=== PATIENT | female | born 1960 | race Caucasian/White ===

== ENCOUNTER 2020-12-07 14:00 | Observation (INO) | payer OTHER, BC ==
[~2020-12-07] VITALS: Ht 167.6 cm; Wt 81.0 kg
[2020-12-07] MEDS ORDERED: ASPIRIN CHEWABLE 81 MG TABLET. PO ONE (14:15)
[2020-12-07 14:24] LABS: BASO # 0.1 x10^3/uL (0.0-0.2); BASO % 1 % (0-3); EOS # 0.2 x10^3/uL (0.0-0.7); EOS % 2 % (0-3); HEMATOCRIT 44.6 % (36.0-47.0); HEMOGLOBIN 15.5 g/dL (12.0-15.5); LYMPH # 2.5 x10^3/uL (1.0-4.8); LYMPH % 30 % (24-48); MEAN CORPUSCULAR HEMOGLOBIN 33 pg (25-35); MEAN CORPUSCULAR HGB CONC 35 g/dL (31-37); MEAN CORPUSCULAR VOLUME 93 fL (79-100); MONO # 0.7 x10^3/uL (0.0-1.1); MONO % 8 % (0-9); NEUT % 59 % (31-73); PLATELET COUNT 308 x10^3/uL (140-400); RED BLOOD COUNT 4.78 x10^6/uL (3.50-5.40); RED CELL DISTRIBUTION WIDTH 12.8 % (11.5-14.5); WHITE BLOOD COUNT 8.4 x10^3/uL (4.0-11.0)
--- NOTE | 2020-12-07 14:29 | ED.ADGEN ---
General Adult EDM: Chief Complaint: CHEST PAIN HPI: HPI: Patient is a 60-year-old female who arrives ambulatory to the emergency department complaining of chest pain with radiation through to her back. Patient reports this pain began shortly after 10:00 this morning. She describes the pain as knifelike in nature. Patient reports she just returned from [facility] where she was evaluated for chest pain similar to this. She states she had an exhaustive evaluation which did not yield any cause. Despite this the patient denies any history of fever, cough or shortness of air. Additionally she denies any history of known cardiac disease. She is awake, alert and anxious appearing. Review of Systems: Review of Systems: Constitutional: Denies fever or chills. [] Eyes: Denies change in visual acuity. [] HENT: Denies nasal congestion or sore throat. [] Respiratory: Denies cough or shortness of breath. [] Cardiovascular: Reports chest pain with migration through to her back. Denies edema. [] GI: Denies abdominal pain, nausea, vomiting, bloody stools or diarrhea. [] : Denies dysuria. [] Musculoskeletal: Reports thoracic back pain. Denies joint pain. [] Integument: Denies rash. [] Neurologic: Denies headache, focal weakness or sensory changes. [] Endocrine: Denies polyuria or polydipsia. [] Lymphatic: Denies swollen glands. [] Psychiatric: Denies depression or anxiety. [] Current Medications: Current Medications Medications (Trade) Dose Ordered Sig/Kaylen Start Time Stop Time Status Last Admin Dose Admin Aspirin (Aspirin Chewable) 324 mg 1X ONCE 12/07/20 14:15 12/07/20 14:26 DC 12/07/20 14:23 324 MG Morphine Sulfate (Morphine Sulfate) 4 mg PRN Q2HR PRN 12/07/20 15:15 12/08/20 15:14 Ondansetron HCl (Zofran) 4 mg PRN Q8HRS PRN 12/07/20 15:15 12/08/20 15:14 Allergies: Allergies: Allergies Coded Allergies Type Severity Reaction Last Updated Verified dicyclomine Allergy Severe Anaphylaxis 12/07/20 Yes Physical Exam: PE: Constitutional: Anxious appearing. Well developed, well nourished, no acute distress, non-toxic appearance. [] HENT: Normocephalic, atraumatic, bilateral external ears normal, oropharynx moist, no oral exudates, nose normal. [] Eyes: PERRLA, EOMI, conjunctiva normal, no discharge. [] Neck: Normal range of motion, no tenderness, supple, no stridor. [] Cardiovascular:Heart rate regular rhythm, no murmur [] Lungs & Thorax: Bilateral breath sounds clear to auscultation [] Abdomen: Bowel sounds normal, soft, no tenderness, no masses, no pulsatile masses. [] Skin: Warm, dry, no erythema, no rash. [] Back: No tenderness, no CVA tenderness. [] Extremities: No tenderness, no cyanosis, no clubbing, ROM intact, no edema. [] Neurologic: Alert and oriented X 3, normal motor function, normal sensory function, no focal deficits noted. [] Psychologic: Affect normal, judgement normal, mood normal. [] Current Patient Data: Labs: Laboratory Tests Test 12/07/20 14:12 White Blood Count 8.4 x10^3/uL (4.0-11.0) Red Blood Count 4.78 x10^6/uL (3.50-5.40) Hemoglobin 15.5 g/dL (12.0-15.5) Hematocrit 44.6 % (36.0-47.0) Mean Corpuscular Volume 93 fL (79-100) Mean Corpuscular Hemoglobin 33 pg (25-35) Mean Corpuscular Hemoglobin Concent 35 g/dL (31-37) Red Cell Distribution Width 12.8 % (11.5-14.5) Platelet Count 308 x10^3/uL (140-400) Neutrophils (%) (Auto) 59 % (31-73) Lymphocytes (%) (Auto) 30 % (24-48) Monocytes (%) (Auto) 8 % (0-9) Eosinophils (%) (Auto) 2 % (0-3) Basophils (%) (Auto) 1 % (0-3) Neutrophils # (Auto) 5.0 x10^3/uL (1.8-7.7) Lymphocytes # (Auto) 2.5 x10^3/uL (1.0-4.8) Monocytes # (Auto) 0.7 x10^3/uL (0.0-1.1) Eosinophils # (Auto) 0.2 x10^3/uL (0.0-0.7) Basophils # (Auto) 0.1 x10^3/uL (0.0-0.2) Sodium Level 137 mmol/L (136-145) Potassium Level 3.7 mmol/L (3.5-5.1) Chloride Level 101 mmol/L (98-107) Carbon Dioxide Level 29 mmol/L (21-32) Anion Gap 7 (6-14) Blood Urea Nitrogen 14 mg/dL (7-20) Creatinine 0.9 mg/dL (0.6-1.0) Estimated GFR (Cockcroft-Gault) 64.1 BUN/Creatinine Ratio 16 (6-20) Glucose Level 101 mg/dL (70-99) H Calcium Level 9.1 mg/dL (8.5-10.1) Total Bilirubin 1.1 mg/dL (0.2-1.0) H Aspartate Amino Transferase (AST) 14 U/L (15-37) L Alanine Aminotransferase (ALT) 22 U/L (14-59) Alkaline Phosphatase 67 U/L (46-116) Troponin I Quantitative < 0.017 ng/mL (0.000-0.055) CQ-Qti-N-Type Natriuretic Peptide 20 pg/mL (0-124) Total Protein 7.4 g/dL (6.4-8.2) Albumin 4.0 g/dL (3.4-5.0) Albumin/Globulin Ratio 1.2 (1.0-1.7) Lipase 106 U/L (73-393) Laboratory Tests 12/07/20 14:12 Laboratory Tests 12/07/20 14:12 Vital Signs: Vital Signs Date Time Temp Pulse Resp B/P (MAP) Pulse Ox O2 Delivery O2 Flow Rate FiO2 12/07/20 14:48 19 96 Room Air 12/07/20 14:01 98.1 81 158/85 (109) 98.1 EKG: EKG: EKG was obtained at 1406 hrs. and revealed a sinus rhythm with a ventricular rate of 72 bpm. There is left axis deviation with T wave inversion in the anterior leads. There is no ectopy present. Intervals are normal. [] Heart Score: C/O Chest Pain: Yes HEART Score for Chest Pain: HEART Score for Chest Pain Response (Comments) Value History Moderately Suspicious 1 ECG Nonspecific Repolarizatio 1 Age >45 - < 65 1 Risk Factors 1 or 2 Risk Factors 1 Troponin < Normal Limit 0 Total 4 Risk Factors: Risk Factors: DM, Current or recent (<one month) smoker, HTN, HLP, family history of CAD, obesity. Risk Scores: Score 0 - 3: 2.5% MACE over next 6 weeks - Discharge Home Score 4 - 6: 20.3% MACE over next 6 weeks - Admit for Clinical Observation Score 7 - 10: 72.7% MACE over next 6 weeks - Early Invasive Strategies Radiology/Procedures: Radiology/Procedures: [] Impression: [facility] [address] [place], [place] [id number] IMAGING REPORT Signed PATIENT: KALINA HAMMER ACCOUNT: [id number] : 1960 LOCATION: ER AGE: 60 SEX: F EXAM STATUS: REG ER ORD. PHYSICIAN: RAGINI OVALLES DO REASON: Chest pain PROCEDURE: PORTABLE CHEST 1V XR CHEST 1V Clinical Indication: Reason: Chest pain / Comparison: None. Findings: The cardiomediastinal silhouette is normal. A tiny calcification in the right lung base and a small calcification in the left lung base may be calcified granulomas. Lungs are clear. There is no pneumothorax. No pleural effusion is appreciated. No acute bone abnormality. IMPRESSION: No acute cardiopulmonary process. Electronically signed by: Adebayo Cobb MD (12/07/2020 2:46 PM) [id number] DICTATED and SIGNED BY: ADEBAYO COBB MD DATE: 12/07/20 [id number] 0 Course & Med Decision Making: Course & Med Decision Making Pertinent Labs and Imaging studies reviewed. (See chart for details) [] Homar Disclaimer: Homar Disclaimer: This electronic medical record was generated, in whole or in part, using a voice recognition dictation system. Departure Departure Impression: Primary Impression: Chest pain Disposition: ADMITTED INPT THIS HOSP Admitting Physician: LIZ Condition: STABLE Referrals: CELY ANDRES MD (PCP) RAGINI OVALLES DO Dec 07, 2020 14:29
[2020-12-07 14:32] LABS: CALCIUM 9.1 mg/dL (8.5-10.1); CREATININE 0.9 mg/dL (0.6-1.0); GFR 64.1; POTASSIUM 3.7 mmol/L (3.5-5.1)
[2020-12-07 14:38] LABS: ALBUMIN/GLOBULIN RATIO 1.2 (1.0-1.7); TOTAL BILIRUBIN 1.1 mg/dL (0.2-1.0); TOTAL PROTEIN 7.4 g/dL (6.4-8.2)
[2020-12-07] MEDS ORDERED: MORPHINE SULFATE 4 MG/ML VIAL. IV ONE (14:45)
[2020-12-07] MEDS ORDERED: MORPHINE SULFATE 4 MG/ML VIAL. ONE (14:45)
[2020-12-07] MEDS ORDERED: ONDANSETRON PF 4 MG/2 ML VIAL. IVP ONE (14:45)
--- NOTE | 2020-12-07 14:49 | RAD ---
XR CHEST 1V Clinical Indication: Reason: Chest pain / Comparison: None. Findings: The cardiomediastinal silhouette is normal. A tiny calcification in the right lung base and a small c alcification in the left lung base may be calcified granulomas. Lungs are clear. There is no pneumoth orax. No pleural effusion is appreciated. No acute bone abnormality. IMPRESSION: No acute cardiopulmonary process. Electronically signed by: Adebayo Cobb MD (12/07/2020 2:46 PM) [id number]
[2020-12-07] MEDS ORDERED: ONDANSETRON PF 4 MG/2 ML VIAL. IV PRN (15:15)
[2020-12-07] MEDS: MORPHINE SULFATE 4 MG/ML VIAL. IV PRN (16:53)
--- NOTE | 2020-12-07 17:08 | HP ---
ADMIT DATE: 12/07/2020 CHIEF COMPLAINT: Chest pain, syncope, nausea, back pain, low blood pressure. 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 Basically, she was down in [place], [place] and started developing what she thought might be cardiac symptoms. She tried to put it off until they got back to [place], but went ahead and went to the hospital down there. They told her she had some T-wave inversions, but no acute changes and let her go and told her to follow up here in [place]. Today, she was having some more chest pains radiating to the back, started at 10:00 this morning. Describes it as a knife-like sensation. I discussed the case with the ER physician. We are going to admit the patient and do a full cardiac workup. We are going to consult Cardiology. I am also going to do an ultrasound of her gallbladder to make sure she does not have gallstones. PAST MEDICAL HISTORY: Benign. ALLERGIES: DICYCLOMINE. FAMILY HISTORY: Diabetes. SOCIAL HISTORY: She does not drink, smoke or take drugs. She is an RN. MEDICATIONS: Reviewed, please refer to the MRAD. REVIEW OF SYSTEMS: GENERAL: No history of weight change, weakness or fevers. SKIN: No bruising, hair changes or rashes. EYES: No blurred, double or loss of vision. NOSE AND THROAT: No history of nosebleeds, hoarseness or sore throat. HEART: She complains of chest pain radiating to the back. LUNGS: Denies cough, hemoptysis, wheezing or shortness of breath. GASTROINTESTINAL: She complains of some nausea. GENITOURINARY: No history of frequency, urgency, hesitancy or nocturia. NEUROLOGIC: Denies history of numbness, tingling, tremor or weakness. PSYCHIATRIC: No history of panic, anxiety or depression. ENDOCRINE: No history of heat or cold intolerance, polyuria or polydipsia. EXTREMITIES: Denies muscle weakness, joint pain, pain on walking or stiffness. PHYSICAL EXAMINATION: VITALS: Within normal limits and are stable. GENERAL: No apparent distress. Alert and oriented. HEENT: Normal cephalic atraumatic, external auditory canals are patent. Eyes: Extraocular muscles are intact, pupils are equally round and reactive to light and accommodation. MUSCULOSKELETAL: Well developed, well nourished, good range of motion. ENDOCRINE: No thyromegaly was palpated. LYMPHATICS: No cervical chain or axillary nodes were noted. HEMATOPOIETIC: No bruising. NECK: Supple, no JVD, no thyromegaly was noted. LUNGS: Clear to auscultation in all lung moody without rhonchi or wheezing. HEART: RRR, S1, S2 present. Peripheral pulses intact, no obvious murmurs were noted. ABDOMEN: Soft, nontender. Positive bowel sounds no organomegaly, normal bowel sounds. EXTREMITIES: Without any cyanosis, clubbing, or edema. Pedal pulses intact, Homans sign is negative. NEUROLOGIC: Normal speech, normal tone. A and O x 3, moves all extremities, no obvious focal deficits. PSYCHIATRIC: Normal affect, normal mood. Stable. SKIN: No ulcerations or rashes, good skin turgor, no jaundice. VASCULAR: Good capillary refill, neurovascular bundle appears to be intact. LABORATORY DATA: Troponin is 0. Electrolytes are normal. CBC is normal. IMAGING: Chest x-ray, negative. ASSESSMENT AND PLAN: Chest pain, nausea, syncope, subjective hypotension. The patient has been admitted. We will consult Cardiology. Serial enzymes. Serial EKGs. Home meds. DVT prophylaxis. Full code. Cardiac monitoring. We will check an ultrasound of the gallbladder. MODESTO MADDEN DO DR: VAISHALI/jose JOB#: [id number] / [id number]
[2020-12-07 17:50] VITALS: BP 127/56
[2020-12-07] MEDS ORDERED: PROMETHAZINE 12.5 MG TABLET. PO PRN (19:15)
[2020-12-07] MEDS: KETOROLAC 15 MG/ML VIAL. IVP PRN (19:51)
[2020-12-07 19:58] VITALS: BP 106/55
[2020-12-07 22:16] VITALS: BP 102/51
--- NOTE | 2020-12-08 00:20 | RAD ---
Abdominal ultrasound Limited: Reason for examination: Chest pain. Evaluate for gallbladder disease. Pancreas is poorly visualized but no gross abnormalities apparent. The inferior vena cava shows no ab normality. The liver measures 17.2 cm in greatest dimension and shows no focal lesion but does show s ome fatty infiltration. Gallbladder shows no cholelithiasis, sludge or wall thickening. Common bile d uct is normal in caliber 4.1 mm. The right kidney measures 11.2 x 4.8 x 4.6 cm in greatest dimension and shows normal cortical medullary differentiation with no mass or hydronephrosis evident. IMPRESSION: Fatty liver. No gallbladder disease evident. Electronically signed by: Petra Ware MD (12/08/2020 12:17 AM) MARK
[2020-12-08 02:11] VITALS: BP 107/55
[2020-12-08 07:00] VITALS: BP 101/49
[2020-12-08] MEDS: KETOROLAC 15 MG/ML VIAL. IVP PRN (07:53)
[2020-12-08] MEDS ORDERED: SENN1TAB99 PO (08:02)
[2020-12-08] MEDS ORDERED: CETI10TA74 PO (08:02)
[2020-12-08] MEDS ORDERED: SENNOSIDES/DOCUSATE 8.6/50MG TABLET. PO SCH (09:00)
[2020-12-08] MEDS ORDERED: CETIRIZINE HCL 10 MG TABLET. PO SCH (09:00)
[2020-12-08] MEDS: MORPHINE SULFATE 4 MG/ML VIAL. IV PRN (09:04)
--- NOTE | 2020-12-08 10:21 | PDOC ---
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 She tried to put it off until they got back to [place], but went ahead and went to the hospital down there. They told her she had some T-wave inversions, but no acute changes and let her go and told her to follow up here in [place]. Today, she was having some more chest pains radiating to the back, started at 10:00 this morning. Describes it as a knife-like sensation. I discussed the case with the ER physician. We are going to admit the patient and do a full cardiac workup. We are going to consult Cardiology. I am also going to do an ultrasound of her gallbladder to make sure she does not have gallstones. Vitals/I&O Vitals/I&O: Vital Signs Date Time Temp Pulse Resp B/P (MAP) Pulse Ox O2 Delivery O2 Flow Rate FiO2 12/08/20 07:00 97.8 66 20 101/49 (66) 95 Room Air 97.8 I & O 12/07/20 12/07/20 12/08/20 15:00 23:00 07:00 Intake Total 480 ml Balance 480 ml Physical Exam General: Alert, Oriented X3, Cooperative, No acute distress Heart: Regular rate, No murmurs Lungs: Clear, Other (No wheexes or crackles ) Abdomen: Normal bowel sounds, No tenderness Extremities: No clubbing, No cyanosis Skin: No rashes, No breakdown Labs Labs: Laboratory Tests Test 12/07/20 14:12 12/07/20 20:05 White Blood Count 8.4 x10^3/uL (4.0-11.0) Red Blood Count 4.78 x10^6/uL (3.50-5.40) Hemoglobin 15.5 g/dL (12.0-15.5) Hematocrit 44.6 % (36.0-47.0) Mean Corpuscular Volume 93 fL (79-100) Mean Corpuscular Hemoglobin 33 pg (25-35) Mean Corpuscular Hemoglobin Concent 35 g/dL (31-37) Red Cell Distribution Width 12.8 % (11.5-14.5) Platelet Count 308 x10^3/uL (140-400) Neutrophils (%) (Auto) 59 % (31-73) Lymphocytes (%) (Auto) 30 % (24-48) Monocytes (%) (Auto) 8 % (0-9) Eosinophils (%) (Auto) 2 % (0-3) Basophils (%) (Auto) 1 % (0-3) Neutrophils # (Auto) 5.0 x10^3/uL (1.8-7.7) Lymphocytes # (Auto) 2.5 x10^3/uL (1.0-4.8) Monocytes # (Auto) 0.7 x10^3/uL (0.0-1.1) Eosinophils # (Auto) 0.2 x10^3/uL (0.0-0.7) Basophils # (Auto) 0.1 x10^3/uL (0.0-0.2) Sodium Level 137 mmol/L (136-145) Potassium Level 3.7 mmol/L (3.5-5.1) Chloride Level 101 mmol/L (98-107) Carbon Dioxide Level 29 mmol/L (21-32) Anion Gap 7 (6-14) Blood Urea Nitrogen 14 mg/dL (7-20) Creatinine 0.9 mg/dL (0.6-1.0) Estimated GFR (Cockcroft-Gault) 64.1 BUN/Creatinine Ratio 16 (6-20) Glucose Level 101 mg/dL (70-99) Calcium Level 9.1 mg/dL (8.5-10.1) Total Bilirubin 1.1 mg/dL (0.2-1.0) Aspartate Amino Transf (AST/SGOT) 14 U/L (15-37) Alanine Aminotransferase (ALT/SGPT) 22 U/L (14-59) Alkaline Phosphatase 67 U/L (46-116) Troponin I Quantitative < 0.017 ng/mL (0.000-0.055) < 0.017 ng/mL (0.000-0.055) PP-Msp-G-Type Natriuretic Peptide 20 pg/mL (0-124) Total Protein 7.4 g/dL (6.4-8.2) Albumin 4.0 g/dL (3.4-5.0) Albumin/Globulin Ratio 1.2 (1.0-1.7) Lipase 106 U/L (73-393) Review of Systems Review of Systems: Patient denied headache, and skin changes Assessment and Plan Assessmemt and Plan Problems Medical Problems: (1) Chest pain Status: Acute Assessment: 1. Chest pain 2. Syncope 3. nausea 4. back pain 5. low blood pressure Plan: 1. Await MPI 2. Discharge disposition pending 3. DVT prophylaxis 4. Home meds 5. Full code 6. subspecialty input appreciated Comment Review of Relevant I have reviewed the following items annabel (where applicable) has been applied. Medications: Current Medications Medications (Trade) Dose Ordered Sig/Kaylen Route PRN Reason Start Time Stop Time Status Last Admin Dose Admin Aspirin (Aspirin Chewable) 324 mg 1X ONCE PO 12/07/20 14:15 12/07/20 14:26 DC 12/07/20 14:23 Ondansetron HCl (Zofran) 4 mg 1X ONCE IVP 12/07/20 14:45 12/07/20 14:46 DC 12/07/20 14:47 Morphine Sulfate (Morphine Sulfate) 4 mg 1X ONCE IV 12/07/20 14:45 12/07/20 14:46 DC 12/07/20 14:48 Ondansetron HCl (Zofran) 4 mg PRN Q8HRS PRN IV NAUSEA/VOMITING 12/07/20 15:15 12/08/20 15:14 12/07/20 16:52 Morphine Sulfate (Morphine Sulfate) 4 mg PRN Q2HR PRN IV PAIN 12/07/20 15:15 12/08/20 15:14 12/07/20 16:53 Ketorolac Tromethamine (Toradol 15mg Vial) 10 mg PRN Q6HRS PRN IVP PAIN 12/07/20 19:15 12/12/20 19:14 12/08/20 07:53 Promethazine HCl (Phenergan) 12.5 mg PRN Q6HRS PRN PO NAUSEA/VOMITING 12/07/20 19:15 12/07/20 19:50 Cetirizine HCl (ZyrTEC) 10 mg DAILY PO 12/08/20 09:00 12/08/20 08:58 Senna/Docusate Sodium (Senna Plus) 2 tab DAILY PO 12/08/20 09:00 12/08/20 08:58 Justifications for Admission Other Justification MODESTO MADDEN III DO Dec 08, 2020 10:20
[2020-12-08] MEDS ORDERED: REGADENOSON 0.4 MG/5 ML DISP.SYRIN. IV ONE ×2 (10:45→12:00)
[2020-12-08 11:04] VITALS: BP 114/53
--- NOTE | 2020-12-08 11:51 | NUR ---
SS following for discharge planning. SS reviewed pt chart and discussed with pt RN. Pt is from home with spouse and is currently on room air. Cardiology consulted. Stress test today. SS will continue to follow for discharge planning.
[2020-12-08] MEDS ORDERED: ACETAMINOPHEN 500 MG TABLET PO PRN (14:30)
[2020-12-08 15:00] VITALS: BP 96/49
--- NOTE | 2020-12-08 15:32 | PDOC2 ---
CONSULT Date of Consult Date of Consult DATE: 12/08/20 TIME: 15:27 Reason for Consult Reason for Consult: Chest pain Referring Physician Referring Physician: Dr. Bush Identification/Chief Complaint Chief Complaint Chest pain Source Source: Chart review, Patient History of Present Illness Reason for Visit: The patient is a 60-year-old female who was admitted through the emergency room yesterday for chest pain. Patient describes the pain as sharp and was not clearly related to exertion. It has improved overnight and has now largely resolved. She was recently worked up in [place] for similar complaints. She reports a normal echocardiogram but no stress testing. On admission her blood pressure was mildly elevated at 158/85. Her EKG showed no acute ischemic changes but did have mild T wave inversion which apparently were also present a week ago. Chest x-ray shows no acute processes. Troponin has been normal x2. A gallbladder study also has been normal. She has no documented history of coronary disease, congestive heart failure or cardiac arrhythmias. Past Surgical History Past Surgical History: No pertinent history Family History Family History: Diabetes Social History No ALCOHOL: none Current Problem List Problem List Problems Medical Problems: (1) Chest pain Status: Acute Current Medications Current Medications Current Medications Aspirin (Aspirin Chewable) 324 mg 1X ONCE PO Last administered on 12/07/20at 14:23; Start 12/07/20 at 14:15; Stop 12/07/20 at 14:26; Status DC Ondansetron HCl (Zofran) 4 mg 1X ONCE IVP Last administered on 12/07/20at 14:47; Start 12/07/20 at 14:45; Stop 12/07/20 at 14:46; Status DC Morphine Sulfate (Morphine Sulfate) 4 mg 1X ONCE IV Last administered on 12/07/20at 14:48; Start 12/07/20 at 14:45; Stop 12/07/20 at 14:46; Status DC Morphine Sulfate (Morphine Sulfate) 4 mg STK-MED ONCE .ROUTE ; Start 12/07/20 at 14:45; Stop 12/07/20 at 14:45; Status DC Ondansetron HCl (Zofran) 4 mg PRN Q8HRS PRN IV NAUSEA/VOMITING Last administered on 12/07/20at 16:52; Start 12/07/20 at 15:15; Stop 12/08/20 at 15:14; Status DC Morphine Sulfate (Morphine Sulfate) 4 mg PRN Q2HR PRN IV PAIN Last administered on 12/07/20at 16:53; Start 12/07/20 at 15:15; Stop 12/08/20 at 15:14; Status DC Ketorolac Tromethamine (Toradol 15mg Vial) 10 mg PRN Q6HRS PRN IVP PAIN Last administered on 12/08/20at 07:53; Start 12/07/20 at 19:15; Stop 12/12/20 at 19:14 Promethazine HCl (Phenergan) 12.5 mg PRN Q6HRS PRN PO NAUSEA/VOMITING Last administered on 12/07/20at 19:50; Start 12/07/20 at 19:15 Cetirizine HCl (ZyrTEC) 10 mg DAILY PO Last administered on 12/08/20at 08:58; Start 12/08/20 at 09:00 Senna/Docusate Sodium (Senna Plus) 2 tab DAILY PO Last administered on at 08:58; Start 12/08/20 at 09:00 Regadenoson (Lexiscan) 0.4 mg 1X ONCE IV ; Start 12/08/20 at 10:45; Stop 12/08/20 at 10:46; Status DC Acetaminophen (Tylenol) 1,000 mg PRN Q6HRS PRN PO pain Last administered on 12/08/20at 14:29; Start 12/08/20 at 14:30 Active Scripts Active Reported Zyrtec (Cetirizine Hcl) 10 Mg Tablet 10 Mg PO DAILY Senna-Docusate Sodium Tablet (Sennosides/Docusate Sodium) 1 Each Tablet 2 Tab PO DAILY Allergies Allergies: Coded Allergies: dicyclomine (Verified Allergy, Severe, Anaphylaxis, 12/07/20) ROS Cardiovascular: yes Chest Pain Physical Exam General: No acute distress HEENT: Atraumatic Lungs: Clear to auscultation Heart: Regular rate Abdomen: Normal bowel sounds Vitals VITALS Vital Signs Date Time Temp Pulse Resp B/P (MAP) Pulse Ox O2 Delivery O2 Flow Rate FiO2 12/08/20 11:04 98.4 68 20 114/53 (73) 93 Room Air 98.4 Labs Labs Laboratory Tests Test 12/07/20 14:12 3/18/21 20:05 White Blood Count 8.4 x10^3/uL (4.0-11.0) Red Blood Count 4.78 x10^6/uL (3.50-5.40) Hemoglobin 15.5 g/dL (12.0-15.5) Hematocrit 44.6 % (36.0-47.0) Mean Corpuscular Volume 93 fL (79-100) Mean Corpuscular Hemoglobin 33 pg (25-35) Mean Corpuscular Hemoglobin Concent 35 g/dL (31-37) Red Cell Distribution Width 12.8 % (11.5-14.5) Platelet Count 308 x10^3/uL (140-400) Neutrophils (%) (Auto) 59 % (31-73) Lymphocytes (%) (Auto) 30 % (24-48) Monocytes (%) (Auto) 8 % (0-9) Eosinophils (%) (Auto) 2 % (0-3) Basophils (%) (Auto) 1 % (0-3) Neutrophils # (Auto) 5.0 x10^3/uL (1.8-7.7) Lymphocytes # (Auto) 2.5 x10^3/uL (1.0-4.8) Monocytes # (Auto) 0.7 x10^3/uL (0.0-1.1) Eosinophils # (Auto) 0.2 x10^3/uL (0.0-0.7) Basophils # (Auto) 0.1 x10^3/uL (0.0-0.2) Sodium Level 137 mmol/L (136-145) Potassium Level 3.7 mmol/L (3.5-5.1) Chloride Level 101 mmol/L (98-107) Carbon Dioxide Level 29 mmol/L (21-32) Anion Gap 7 (6-14) Blood Urea Nitrogen 14 mg/dL (7-20) Creatinine 0.9 mg/dL (0.6-1.0) Estimated GFR (Cockcroft-Gault) 64.1 BUN/Creatinine Ratio 16 (6-20) Glucose Level 101 mg/dL (70-99) Calcium Level 9.1 mg/dL (8.5-10.1) Total Bilirubin 1.1 mg/dL (0.2-1.0) Aspartate Amino Transf (AST/SGOT) 14 U/L (15-37) Alanine Aminotransferase (ALT/SGPT) 22 U/L (14-59) Alkaline Phosphatase 67 U/L (46-116) Troponin I Quantitative < 0.017 ng/mL (0.000-0.055) < 0.017 ng/mL (0.000-0.055) VN-Qeh-B-Type Natriuretic Peptide 20 pg/mL (0-124) Total Protein 7.4 g/dL (6.4-8.2) Albumin 4.0 g/dL (3.4-5.0) Albumin/Globulin Ratio 1.2 (1.0-1.7) Lipase 106 U/L (73-393) Laboratory Tests Test 12/07/20 20:05 Troponin I Quantitative < 0.017 ng/mL (0.000-0.055) Images Images Chest x-ray with no acute processes. Assessment/Plan Assessment/Plan 1. Chest pain. Patient has ruled out for myocardial infarction. She has no ac aamir ischemic EKG changes. Reported echocardiogram a week ago was normal. Ultrasound the gallbladder was also normal. In this setting we will continue present medications proceed with a nuclear stress test today. If low risk the patient could conceivably be discharged later today and followed up in the office. 2. Mild hypertension on admission. It has improved overnight. 3. Uncertain cholesterol level. Will check in-house or possibly as an outpatient. Thank you for allowing us to participate in the care of your patient. MELINDA LAMB MD Dec 08, 2020 15:32
--- NOTE | 2020-12-08 16:18 | RAD ---
MR#: [id number] Date of Study: 12/08/2020 Ordering Physician: MELINDA LAMB, Referring Physician: JOHNIE DIAZ Tech: RT Cierra (R) (N) APPROVED REPORT Test Type: Pharmacological Stress Nurse/Tech: CONNIE KLEIN Test Indications: CHEST PAIN, SYNCOPE Cardiac History: SEE EMR Medications: SEE EMR Medical History: SEE EMR Resting ECG: SR Resting Heart Rate: 68 bpm Resting Blood Pressure: 95/41mmHg Pretest Chest Pain: No chest pain Nurse/Tech Notes S1,S2, LUNGST CTA, DENIED CP OR SOA, VSS. Consent: The procedure was explained to the patient in lay terms. Informed consent was witnessed. Sonu eout was entered into [employer]. History and Stress Test performed by KAY Gramajo Pharm. Details Pharmacologic stress testing was performed using 0.4mg per 5ml of regadenoson given intravenously ove r 7-10 seconds. Stress Symptoms PT C/O UPSET STOMACH AND HEADACHE DURING STRESS, VSS, DENIED CP OR SOA. POST EXERCISE Reason for Termination: Infusion complete Max HR: 114 bpm Max Blood Pressure: 121/43mmHg Blood Pressure response to exercise: Normal blood pressure response during stress. Heart Rate response to exercise: NORMAL HEART RATE RESPONSE DURING STRESS. Chest Pain: No. Arrhythmia: No. ST Change: . T WAVE INVERSION NOTED, SLIGHT DEPRESSION DURING INITIAL STRESS, RETURNED TO BASELINE EK G. INTERPRETATION Stress EKG Conclusion: Abnormal stress EKG changes suggestive of ischemia with diffuse TWI. Imaging Protocol IMAGE PROTOCOL: Rest Tc-99m/stress Tc-99m 1 day Rest: Stress: Viability: Radiopharm.Tc99m TjiiimazrHm91s Sestamibi Dose11.2mCi 31.3mCi Duration 15min. 10min. Img Date 12/08/2020 12/08/2020 Inj-Img [id number]. 60min. Rest Admin Site:IV - Left AntecubitalAdministrator:RT Cierra (R)(N) Stress Admin Site: IV - Left AntecubitalAdministrator: KAY Gramajo STRESS DATA End Diast. Vol.51.0mlAv. Heart Rate79.0bpm End Syst. Vol.11.0mlCO Index BSA0.0L/min Myocardial Mass92.0gEject. Suzdkutd54.0% Stress Rates Pk. Fill Rate3.23EDV/secLVtime Pk. Fill 163.17msec Pk. Empty Rate6.35ESV/secLVtime Pk. Ctmvk219.14msec / Pk. Fill0.71EDV/sec Stress Scores Regional WT0.00Summed WT0.00 Regional WM0.00Summed WM0.00 The rest and stress images show normal perfusion, normal contraction and thickening. LV Perf. Quant 17 Seg. SSS0.00 17 Seg. SRS2.00 17 Seg. SDS0.00 Stress Defect Extent (% LAD)0.00Rest Defect Extent (% LAD)0.00Rev. Defect Extent (% LAD)0.00 Stress Defect Extent (% LCX) 0.00Rest Defect Extent (% LCX)5.00Rev. Defect Extent (% LCX)0.00 Stress Defect Extent (% RCA)0.00Rest Defect Extent (% RCA)0.00Rev. Defect Extent (% RCA)0.00 Stress Defect Extent (% RHIANNON)0.00Rest Defect Extent (% RHIANNON)1.30Rev. Defect Extent (% RHIANNON)0.00 Other Information Quality:Average Risk Assessment: Low Risk Conclusion 1. Mildly abnormal EKG response with diffuse TWI 2. Normal perfusion at stress/rest. 3. Normal EF at > 70% 4. Low risk study Signed by : Brody Bennett, Electronically Approved : 12/08/2020 16:18:21
--- NOTE | 2020-12-08 16:54 | DS ---
DATE OF DISCHARGE: 12/08/2020 ADMISSION DIAGNOSIS: Chest pain, rule out coronary artery disease. DISCHARGE DIAGNOSIS: Atypical chest pain. CONSULTS: Cardiology. PROCEDURES: Myocardial perfusion imaging, which was negative. 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 She presented to a hospital down at [place]. They noticed some subtle T-wave changes, told to follow up here in [place]. We admitted the patient with some chest pain. We did serial enzymes, serial EKGs, cardiac monitoring. We did a stress test, which was negative. Her entire workup so far has been negative. Clinically, she is doing well. We plan to discharge to home with close outpatient followup. DISPOSITION: Home. ACTIVITY: As tolerated. DIET: Low sodium. MEDICATIONS: Please see the MRAD. We sent her back on her home Zyrtec, Prilosec, and senna. TOTAL TIME: 32 minutes. MODESTO MADDEN DO DR: VAISHALI/jose JOB#: [id number] / [id number]
--- NOTE | 2020-12-08 17:32 | NUR ---
Discharge: Discharged teaching verbal and written. Reviewed medications, follow-up, CP, stress test, ect. Patient verbalized understanding. All belongings with patient. Patient ambulated off of unit with family.
== END 2020-12-08 17:05 | disposition home or self-care (01) ==
LOC: ER 14:00 → ED HOLD 15:15 → 2 NORTH 19:01
PROVIDERS: ADMIT Internal Medicine; ATTEND Internal Medicine
DX: R07.89 Other chest pain (principal); I10 Essential (primary) hypertension; I95.9 Hypotension, unspecified; R11.0 Nausea; M54.9 Dorsalgia, unspecified; R55 Syncope and collapse; Z79.82 Long term (current) use of aspirin
CPT/HCPCS: 36415; 71045; 76705; 78452; 80053; 83690; 83880; 84484; 85025; 93005; 93017; 96374; 96375; 96376; 99285; A9500; G0378; J1885; J2270; J2405; J2785; Q0169; G0379